=== PATIENT | female | born 1990 | race Two or more races ===

== ENCOUNTER 2017-12-13 01:40 | Emergency (ER) | payer OTHER ==
[~2017-12-13] VITALS: Ht 167.6 cm; Wt 104.3 kg
[2017-12-13] MEDS ORDERED: MECLIZINE HCL25 MG PO (13:57)
[2017-12-13] MEDS ORDERED: METOCLOPRAMIDE10 MG PO (13:57)
== END 2017-12-13 14:24 | disposition home or self-care (01) ==
LOC: ER 01:40
DX: H81.13 Benign paroxysmal vertigo, bilateral (principal)

== ENCOUNTER 2018-07-08 23:07 | Emergency (ER) | payer OTHER ==
[~2018-07-08] VITALS: Ht 167.6 cm; Wt 114.3 kg
[~2018-07-08 23:07] MED LIST: MECLIZINE HCL25 MG PO; METOCLOPRAMIDE10 MG PO
[2018-07-09] MEDS ORDERED: TENCON 50-3251 EACH PO (06:34)
== END 2018-07-09 06:53 ==
LOC: ER 23:07
DX: R50.9 Fever, unspecified (principal); R05 Cough; J06.9 Acute upper respiratory infection, unspecified

== ENCOUNTER 2018-07-22 18:23 | Emergency (ER) | payer OTHER ==
[~2018-07-22] VITALS: Ht 167.6 cm; Wt 133.8 kg
[~2018-07-22 18:23] MED LIST changes: +TENCON 50-3251 EACH PO
== END 2018-07-22 21:45 | disposition home or self-care (01) ==
LOC: ER 18:23
DX: B34.9 Viral infection, unspecified (principal)

== ENCOUNTER → 2018-08-04 | Emergency (ER) | payer OTHER ==
[~2018-08-04] VITALS: Ht 167.6 cm; Wt 133.8 kg
[~2018-08-04] MED LIST changes: +BUTALB-ACETAMI1 EAC2 PO
== END | disposition home or self-care (01) ==
LOC: ER 20:17
DX: G43.909 Migraine, unspecified, not intractable, without status migrainosus (principal)

== ENCOUNTER 2018-10-26 21:37 | Emergency (ER) | payer OTHER ==
[~2018-10-26] VITALS: Ht 167.6 cm; Wt 112.5 kg
[2018-10-27] MEDS ORDERED: ZOFRAN8 MG PO ×2 (02:16)
[2018-10-27] MEDS ORDERED: ZANTAC300 MG PO (02:16)
[2018-10-27] MEDS ORDERED: PROTONIX40 MG PO (02:16)
== END 2018-10-27 03:04 | disposition home or self-care (01) ==
LOC: ER 21:37
DX: K29.70 Gastritis, unspecified, without bleeding (principal); R10.13 Epigastric pain